=== PATIENT | female | born 1925 | race Caucasian/White ===

== ENCOUNTER 2016-11-08 09:33 | Outpatient (CLI) | payer MEDICARE ==
[~2016-11-08] VITALS: Ht 142.2 cm; Wt 49.0 kg
[~2016-11-08 09:33] MED LIST: ASPI-630 PO; CA C1TAB38 PO; CARV3.122 PO; CHOL20002 PO; COLE3.753 PO; CYAN10005 PO; EDOX60TA PO; ESTR42.53 VG; EZET10TA18 PO; FISH OIL OMEGA1 EACH PO; FURO-69 PO; LACT1CAP6 PO; LEVE500T11 PO; LEVE500T56 PO; LISI-334 PO; LORA10CA PO; LOSA25TA4 PO; MULT-475 PO; NIAC500T PO; OMEG1CAP27 PO; OMEP20CA9 PO; OMEP40CA5 PO; POTASSIUM CHLO10 MEQ PO; PRAS10TA9 PO; RIVA15TA PO; UBID100C26 PO; lasix
[2016-11-08] MEDS ORDERED: BACITRACIN 50,000 UNIT in IV NORMAL SALINE 250ML 250 ML IRR ONE (09:45)
[2016-11-08] MEDS ORDERED: 0.9 % SODIUM CHLORIDE 10 ML DISP.SYRIN. IV PRN (09:45)
[2016-11-08] MEDS ORDERED: BIFI4CAP PO (09:59)
[2016-11-08] MEDS ORDERED: HYDR12.58 PO (09:59)
[2016-11-08] MEDS ORDERED: NITR0.4T22 SL (09:59)
[2016-11-08] MEDS ORDERED: VANCOMYCIN 1 GM in IV NORMAL SALINE 250ML 250 ML IV ONE (10:00)
[2016-11-08 10:09] VITALS: BP 119/74
[2016-11-08 10:12] LABS: INR 0.9 (0.8-1.1); PROTHROMBIN TIME PATIENT 11.8 SEC (11.7-14.0)
[2016-11-08] MEDS ORDERED: LIDOCAINE 2% 20 ML VIAL. ONE (10:41)
[2016-11-08] MEDS ORDERED: LIDOCAINE 2% 20 ML VIAL. IJ ONE (11:15)
--- NOTE | 2016-11-08 17:53 | CARD ---
APPROVED REPORT EXAM Loop Recorder HISTORY The Patient is a 89 year-old female with a history of palpitations and near syncope INDICATIONS The pt has been having episodes of palpitations with lightheadedness and also slowing down of the pul se. Unable to catch an episode with the Holter monitor IMPLANTED DEVICES [facility] Loop Recorder PROCEDURE After explaining the risks, benefits, and alternative options, informed consent was obtained from the patient. The patient was brought to the cardiac catheterization lab and the left chest and shoulder were prepp ed and draped in the usual fashion. COMPLICATIONS none CONCLUSION The area over the 4th to 5th ribs at the parasternal level was infiltrated with lido. Skin was incised and with blunt dissection a pocket was created. The loop recorder was inserted. The incision was sutured and Dermabond was applied. A dressing was applied and the function of the loop recorder was found to be normal. Pt tolerated the procedure well.
== END 2016-11-08 12:02 | disposition home or self-care (01) ==
LOC: CCL 09:33
PROVIDERS: ATTEND Internal Medicine Cardiovascular Disease
DX: R55 Syncope and collapse (principal); I11.0 Hypertensive heart disease with heart failure; I50.9 Heart failure, unspecified; E78.00 Pure hypercholesterolemia, unspecified; M19.91 Primary osteoarthritis, unspecified site; K21.9 Gastro-esophageal reflux disease without esophagitis; F10.21 Alcohol dependence, in remission; Z98.41 Cataract extraction status, right eye; Z98.42 Cataract extraction status, left eye; Z86.69 Personal history of other diseases of the nervous system and sense organs; Z87.01 Personal history of pneumonia (recurrent); Z90.49 Acquired absence of other specified parts of digestive tract; Z90.710 Acquired absence of both cervix and uterus; Z87.440 Personal history of urinary (tract) infections; Z87.39 Personal history of other diseases of the musculoskeletal system and connective tissue; Z88.6 Allergy status to analgesic agent; Z88.0 Allergy status to penicillin; Z88.8 Allergy status to other drugs, medicaments and biological substances
CPT/HCPCS: 33282; 36415; 85610; C1764; J1644; J2001

== ENCOUNTER → 2016-12-29 | Outpatient (CLI) | payer MEDICARE ==
[~2016-12-29] MED LIST changes: +BIFI4CAP PO; +HYDR12.58 PO; +NITR0.4T22 SL
--- NOTE | 2016-12-29 18:14 | CARD ---
APPROVED REPORT EXAM: Two-dimensional and M-mode echocardiogram with Doppler and color Doppler. INDICATION Murmur MITRAL REGURGITATION AND NONRHEUMATIC AORTIC VALVE INSUFFICIENCY 2D DIMENSIONS Left Atrium(2D)5.3 (1.6-4.0cm)IVSd1.3 (0.7-1.1cm) Aortic Root(2D)3.0 (2.0-3.7cm)LVDd4.5 (3.9-5.9cm) LVOT Diameter2.0 (1.8-2.4cm)PWd1.2 (0.7-1.1cm) LVDs3.6 (2.5-4.0cm)FS (%) 21.6 % SV41.2 mlLVEF(%)40.0 (>50%) Aortic Valve AoV Peak Geronimo.258.4cm/sAoV VTI60.6cm AO Peak GR.26.7mmHgLVOT Peak Geronimo.67.3cm/s AO Mean GR.16mmHgAVA (VMAX)0.79cm2 BERTO (VTI)0.80cm2 Mitral Valve MV E Yebwcqeu15.0cm/sMV E Peak Gr.8mmHg MV DECEL [id number] A Krfurwak978.6cm/s MV E Mean Gr.2mmHgE/A Ratio0.5 MVA Planimetry1.10cm2 Tricuspid Valve TR P. [id number]/sRAP [id number] TR Peak Gr.[id number] LEFT VENTRICLE The left ventricle is normal size. There is borderline to mild concentric left ventricular hypertroph y. Left ventricle systolic function is mildly impaired. The Ejection Fraction is 40%. There is mild g lobal hypokinesis of the left ventricle noted. Transmitral Doppler flow pattern is Grade I-abnormal r elaxation pattern. RIGHT VENTRICLE The right ventricle is normal size. The right ventricular systolic function is normal. ATRIA The left atrium is severely dilated. The right atrium is mildly dilated. The interatrial septum is in tact with no evidence for an atrial septal defect or patent foramen ovale as noted on 2-D or Doppler imaging. AORTIC VALVE The aortic valve is moderately calcified. The aortic valve is calcified and displays decreased openin g. Doppler and Color Flow revealed mild aortic regurgitation. There is mild to moderate valvular aort ic stenosis. Calculated aortic valve area is 0.8 cm2 with maximum pressure gradient of 27 mmHg and me an pressure gradient of 16 mmHg. MITRAL VALVE The mitral valve leaflets appear to be mildly calcified. Mitral annular calcification is moderate. Th ere is no evidence of mitral valve prolapse. There is mild to moderate mitral valve stenosis. Calcula savanna mitral valve area is 1.1 cm2 with maximum pressure gradient of 8 mmHg and mean pressure gradient of 1.6 mmHg. Doppler and Color-flow revealed mild to moderate mitral regurgitation. TRICUSPID VALVE The tricuspid valve is normal in structure Doppler and Color Flow revealed mild to moderate tricuspid regurgitation. There is mild pulmonary hypertension. The PA pressure was estimated at 34 mmHg. There is no tricuspid valve stenosis. PULMONIC VALVE The pulmonary valve is normal in structure Doppler and Color Flow revealed mild pulmonic valvular reg urgitation. There is no pulmonic valvular stenosis. GREAT VESSELS The aortic root is normal in size. The ascending aorta is normal in size. The IVC is normal in size a nd collapses >50% with inspiration. PERICARDIAL EFFUSION There is no pleural effusion. There is no evidence of significant pericardial effusion. Critical Notification Critical Value: No <Conclusion> There is borderline to mild concentric left ventricular hypertrophy. Left ventricle systolic function is mildly impaired. The Ejection Fraction is 40%. Transmitral Doppler flow pattern is Grade I-abnormal relaxation pattern. The left atrium is severely dilated. The right atrium is mildly dilated. The aortic valve is moderately calcified. The aortic valve is calcified and displays decreased opening. Doppler and Color Flow revealed mild aortic regurgitation. There is mild to moderate valvular aortic stenosis. Calculated aortic valve area is 0.8 cm2 with maximum pressure gradient of 27 mmHg and mean pressure g radient of 16 mmHg. The mitral valve leaflets appear to be mildly calcified. Mitral annular calcification is moderate. There is mild to moderate mitral valve stenosis. Calculated mitral valve area is 1.1 cm2 with maximum pressure gradient of 8 mmHg and mean pressure gr adient of 1.6 mmHg. Doppler and Color-flow revealed mild to moderate mitral regurgitation. Doppler and Color Flow revealed mild to moderate tricuspid regurgitation. There is mild pulmonary hypertension. The PA pressure was estimated at 34 mmHg. Doppler and Color Flow revealed mild pulmonic valvular regurgitation. There is no evidence of significant pericardial effusion.
== END | disposition home or self-care (01) ==
LOC: ECHO 13:20
PROVIDERS: ATTEND Internal Medicine Cardiovascular Disease
DX: I08.3 Combined rheumatic disorders of mitral, aortic and tricuspid valves (principal)
CPT/HCPCS: 93306